=== PATIENT | male | born 1965 | race Caucasian/White ===

== ENCOUNTER 2025-07-09 19:40 | Inpatient (IN) | payer MEDICARE ==
[2025-07-09] MEDS: methylPREDNISolone Sodium Succinate 125 MG/2 ML SDV IVPUSH ONE (19:52)
[2025-07-09 19:56] LABS: BASOPHILS ABSOLUTE AUTO 0.06 K/uL (0.00-0.20); BASOPHILS PERCENT AUTO 0.7 % (0.0-2.0); EOSINOPHILS ABSOLUTE AUTO 2.26 K/uL (0.00-0.50); EOSINOPHILS PERCENT AUTO 24.7 % (0.0-5.0); IMMATURE GRAN ABSOLUTE AUTO 0.04 10^3/uL (0.00-0.04); IMMATURE GRAN PERCENT AUTO 0.4 % (0.0-0.4); LYMPHOCYTES ABSOLUTE AUTO 1.29 K/uL (0.50-3.50); LYMPHOCYTES PERCENT AUTO 14.1 % (10.0-50.0); MONOCYTES ABSOLUTE AUTO 0.50 K/uL (0.00-1.00); MONOCYTES PERCENT AUTO 5.5 % (2.0-14.0); NEUTROPHILS ABSOLUTE AUTO 4.99 K/uL (1.40-7.00); NEUTROPHILS PERCENT AUTO 54.6 % (45.0-80.0); PLATELET COUNT,PLT 205 K/uL (150-350); RED BLOOD CELL COUNT 4.30 M/uL (4.33-5.41); RED CELL DISTRIBUTION WIDTH 14.4 % (11.2-14.1); WHITE BLOOD CELL COUNT,WBC 9.1 K/uL (4.0-10.2)
[2025-07-09] MEDS: Sodium Chloride 0.9% 10 ML Syringe FLUSH PRN (19:59)
[2025-07-09 20:09] LABS: HCO3 VENOUS,POC 20 mmol/L (23-28); O2 SATURATION VENOUS,POC 91 %; PCO2 VENOUS,POC 33 mmHg (41-51); PH VENOUS,POC 7.39 (7.31-7.41); PO2 VENOUS,POC 61 mmHg
[2025-07-09 20:43] LABS: ALANINE AMINOTRANSFERASE,ALT 29.0 U/L (12-78); ASPARTATE AMNIOTRANSFERASE,AST 20.0 U/L (15-37); BILIRUBIN TOTAL 0.8 mg/dL (0.2-1.0); BLOOD UREA NITROGEN,BUN 18.0 mg/dL (7-18); CARBON DIOXIDE,CO2 21.6 mmol/L (21.0-32.0); CHLORIDE,CL 108.0 mmol/L (98-107); CREATININE 2.18 mg/dL (0.51-1.17); EST CRCL DRUG DOSING (CG) 31.7 mL/min; GLUCOSE RANDOM 90.0 mg/dL (70-99); POTASSIUM,K 4.4 mmol/L (3.5-5.1); PRO B-TYPE NATRIUR PEPT,BNPPRO 140.0 pg/mL (0-125); PROTEIN TOTAL,TP 7.4 g/dL (6.4-8.2); SODIUM,NA 141.0 mmol/L (136-145)
[2025-07-09 20:44] LABS: ESTIMATED GFR 33.0 mL/min (>=60)
[2025-07-09] MEDS ORDERED: Ondansetron 4 MG/2 ML SDV IVPUSH PRN (21:01)
[2025-07-09] MEDS ORDERED: Simethicone 125 MG Tab.Chew PO PRN (21:39)
[2025-07-10] MEDS ORDERED: Simethicone 125 MG Tab.Chew PO PRN (00:12)
[2025-07-10 07:32] LABS: BASOPHILS ABSOLUTE AUTO 0.01 K/uL (0.00-0.20); BASOPHILS PERCENT AUTO 0.1 % (0.0-2.0); EOSINOPHILS ABSOLUTE AUTO 0.03 K/uL (0.00-0.50); EOSINOPHILS PERCENT AUTO 0.3 % (0.0-5.0); IMMATURE GRAN ABSOLUTE AUTO 0.05 10^3/uL (0.00-0.04); IMMATURE GRAN PERCENT AUTO 0.5 % (0.0-0.4); LYMPHOCYTES ABSOLUTE AUTO 0.40 K/uL (0.50-3.50); LYMPHOCYTES PERCENT AUTO 4.3 % (10.0-50.0); MONOCYTES ABSOLUTE AUTO 0.07 K/uL (0.00-1.00); MONOCYTES PERCENT AUTO 0.7 % (2.0-14.0); NEUTROPHILS ABSOLUTE AUTO 8.79 K/uL (1.40-7.00); NEUTROPHILS PERCENT AUTO 94.1 % (45.0-80.0); PLATELET COUNT,PLT 194 K/uL (150-350); RED BLOOD CELL COUNT 4.40 M/uL (4.33-5.41); RED CELL DISTRIBUTION WIDTH 14.2 % (11.2-14.1); WHITE BLOOD CELL COUNT,WBC 9.4 K/uL (4.0-10.2)
[2025-07-10 08:15] LABS: BLOOD UREA NITROGEN,BUN 22.0 mg/dL (7-18); CARBON DIOXIDE,CO2 22.7 mmol/L (21.0-32.0); CHLORIDE,CL 106.0 mmol/L (98-107); CREATININE 2.01 mg/dL (0.51-1.17); EST CRCL DRUG DOSING (CG) 34.39 mL/min; GLUCOSE RANDOM 146.0 mg/dL (70-99); POTASSIUM,K 4.6 mmol/L (3.5-5.1); SODIUM,NA 139.0 mmol/L (136-145)
[2025-07-10 08:16] LABS: ESTIMATED GFR 37.0 mL/min (>=60)
[2025-07-10] MEDS: methylPREDNISolone Sodium Succinate 125 MG/2 ML SDV IVPUSH SCH (08:23)
[2025-07-10] MEDS: Fluticasone NASAL Spray 16 GM Bottle NAS SCH (10:09)
[2025-07-10 10:27] LABS: APPEARANCE,URINE CLEAR; GLUCOSE,URINE NEGATIVE (NEGATIVE); OCCULT BLOOD,URINE TRACE-INTACT (NEGATIVE)
[2025-07-10] MEDS: Fluticasone NASAL Spray 16 GM Bottle NASBOTH SCH (20:25)
[2025-07-11 07:35] LABS: BASOPHILS ABSOLUTE AUTO 0.01 K/uL (0.00-0.20); BASOPHILS PERCENT AUTO 0.1 % (0.0-2.0); EOSINOPHILS ABSOLUTE AUTO 0.00 K/uL (0.00-0.50); EOSINOPHILS PERCENT AUTO 0.0 % (0.0-5.0); IMMATURE GRAN ABSOLUTE AUTO 0.10 10^3/uL (0.00-0.04); IMMATURE GRAN PERCENT AUTO 0.7 % (0.0-0.4); LYMPHOCYTES ABSOLUTE AUTO 0.47 K/uL (0.50-3.50); LYMPHOCYTES PERCENT AUTO 3.1 % (10.0-50.0); MONOCYTES ABSOLUTE AUTO 0.34 K/uL (0.00-1.00); MONOCYTES PERCENT AUTO 2.2 % (2.0-14.0); NEUTROPHILS ABSOLUTE AUTO 14.46 K/uL (1.40-7.00); NEUTROPHILS PERCENT AUTO 93.9 % (45.0-80.0); PLATELET COUNT,PLT 208 K/uL (150-350); RED BLOOD CELL COUNT 4.15 M/uL (4.33-5.41); RED CELL DISTRIBUTION WIDTH 14.2 % (11.2-14.1); WHITE BLOOD CELL COUNT,WBC 15.4 K/uL (4.0-10.2)
[2025-07-11 08:11] LABS: ALANINE AMINOTRANSFERASE,ALT 25.0 U/L (12-78); ASPARTATE AMNIOTRANSFERASE,AST 20.0 U/L (15-37); BILIRUBIN TOTAL 0.7 mg/dL (0.2-1.0); BLOOD UREA NITROGEN,BUN 39.0 mg/dL (7-18); CARBON DIOXIDE,CO2 19.7 mmol/L (21.0-32.0); CHLORIDE,CL 106.0 mmol/L (98-107); CREATININE 1.95 mg/dL (0.51-1.17); EST CRCL DRUG DOSING (CG) 35.44 mL/min; GLUCOSE RANDOM 159.0 mg/dL (70-99); POTASSIUM,K 4.2 mmol/L (3.5-5.1); PROTEIN TOTAL,TP 7.2 g/dL (6.4-8.2); SODIUM,NA 140.0 mmol/L (136-145)
[2025-07-11 08:15] LABS: ESTIMATED GFR 38.0 mL/min (>=60)
[2025-07-11] MEDS: Loperamide 2 MG Tab PO PRN (09:40)
[2025-07-11] MEDS ORDERED: FLU (Fluarix Triv) 25-26 (6MOS UP)/PF 45 MCG/0.5 ML Syringe IM ONE (10:00)
[2025-07-11] MEDS: Formoterol/Mometasone 200-5 MCG 8.8 GM Inhaler INH SCH (11:57)
[2025-07-11] MEDS: Tiotropium Bromide 4 GM Inhalation Spray (2.5mcg/1 dose; 10 doses) INH SCH (12:00)
[2025-07-11] MEDS: Furosemide 40 MG/4 ML VIAL IVPUSH ONE (13:36)
[2025-07-11] MEDS: Albuterol 0.083% 2.5 MG/3 ML Neb Soln NEB PRN (17:47)
[2025-07-12 07:41] LABS: BASOPHILS ABSOLUTE AUTO 0.01 K/uL (0.00-0.20); BASOPHILS PERCENT AUTO 0.1 % (0.0-2.0); EOSINOPHILS ABSOLUTE AUTO 0.00 K/uL (0.00-0.50); EOSINOPHILS PERCENT AUTO 0.0 % (0.0-5.0); IMMATURE GRAN ABSOLUTE AUTO 0.08 10^3/uL (0.00-0.04); IMMATURE GRAN PERCENT AUTO 0.8 % (0.0-0.4); LYMPHOCYTES ABSOLUTE AUTO 0.32 K/uL (0.50-3.50); LYMPHOCYTES PERCENT AUTO 3.1 % (10.0-50.0); MONOCYTES ABSOLUTE AUTO 0.55 K/uL (0.00-1.00); MONOCYTES PERCENT AUTO 5.4 % (2.0-14.0); NEUTROPHILS ABSOLUTE AUTO 9.28 K/uL (1.40-7.00); NEUTROPHILS PERCENT AUTO 90.6 % (45.0-80.0); PLATELET COUNT,PLT 170 K/uL (150-350); RED BLOOD CELL COUNT 3.93 M/uL (4.33-5.41); RED CELL DISTRIBUTION WIDTH 14.2 % (11.2-14.1); WHITE BLOOD CELL COUNT,WBC 10.2 K/uL (4.0-10.2)
[2025-07-12 08:13] LABS: BLOOD UREA NITROGEN,BUN 49.0 mg/dL (7-18); CARBON DIOXIDE,CO2 22.1 mmol/L (21.0-32.0); CHLORIDE,CL 106.0 mmol/L (98-107); CREATININE 2.38 mg/dL (0.51-1.17); EST CRCL DRUG DOSING (CG) 29.04 mL/min; GLUCOSE RANDOM 191.0 mg/dL (70-99); POTASSIUM,K 3.8 mmol/L (3.5-5.1); SODIUM,NA 140.0 mmol/L (136-145)
[2025-07-12 08:14] LABS: ESTIMATED GFR 30.0 mL/min (>=60)
[2025-07-12] MEDS ORDERED: Take Home: predniSONE 20 MG, 4 Tab Pack PO ONE (08:55)
[2025-07-12] MEDS ORDERED: Take Home: Doxycycline 100 MG Cap, 4 Cap Pack PO ONE (08:55)
[2025-07-12] MEDS ORDERED: Take Home: Amoxicillin/Clavulanate K 875-125 MG Tab, 6 Tab Pack PO ONE (08:55)
[2025-07-12] MEDS ORDERED: Take Home: Cefuroxime 500 MG Tab, 6 Tab Pack PO ONE (09:03)
[2025-07-12] MEDS: methylPREDNISolone Sodium Succinate 125 MG/2 ML SDV IV ONE (09:17)
[2025-07-12] MEDS: FLU (Fluarix Triv) 25-26 (6MOS UP)/PF 45 MCG/0.5 ML Syringe IM ONE (11:47)
== END 2025-07-12 11:35 | disposition home or self-care (01) | DRG 189 ==
LOC: LL.ED 19:40 → LL.MS 20:45
PROVIDERS: ADMIT Emergency Medicine; ATTEND Emergency Medicine
DX: J96.01 Acute respiratory failure with hypoxia (principal); J44.1 Chronic obstructive pulmonary disease with (acute) exacerbation; I69.354 Hemiplegia and hemiparesis following cerebral infarction affecting left non-dominant side; H54.7 Unspecified visual loss; E78.00 Pure hypercholesterolemia, unspecified; I10 Essential (primary) hypertension; K21.9 Gastro-esophageal reflux disease without esophagitis; Z86.73 Personal history of transient ischemic attack (TIA), and cerebral infarction without residual deficits; Z88.0 Allergy status to penicillin; Z79.82 Long term (current) use of aspirin; Z79.899 Other long term (current) drug therapy
CPT/HCPCS: 36415; 71045; 80048; 80053; 81001; 82803; 83605; 83735; 83880; 84484; 85025; 85379; 87428-QW; 93005; 93010; 94640; 94761; 96374; 99223; 99232; 99233; 99239; 99285-25; A9270-GY; J0696; J1938; J2470; J2919; J7030